=== PATIENT | female | born 1970 | race Caucasian/White ===

== ENCOUNTER → 2017-07-25 10:58 | Outpatient (CLI) | payer MEDICAID, SELFPAY ==
[2017-07-25 13:46] LABS: Free T4 (Free Thyroxine) 1.09 ng/dl (0.76-1.46); Thyroid Stimulating Hormone 2.39 uIU/ml (0.358-3.740)
[2017-07-25 13:51] LABS: Alanine Aminotransferase 30 U/L (12-78); Albumin/Globulin Ratio 1.1 (1.1-1.8); Alkaline Phosphatase 132 U/L (46-116); Anion Gap 11.4 mEq/L (5-15); Aspartate Amino Transferase 23 U/L (15-37); Bilirubin,Total 0.5 mg/dL (0.2-1.0); Blood Urea Nitrogen 10 mg/dL (7-18); C-Reactive Protein 5.3 mg/L (0.0-0.9); Calcium 8.5 mg/dL (8.5-10.1); Carbon Dioxide 30 mmol/L (21.0-32.0); Chloride 99 mmol/L (98-107); Chol/HDL Ratio 4.1 (1-3.5); Cholesterol 184 mg/dL (140-200); Creatinine,Serum 0.94 mg/dL (0.55-1.02); Estimated Glomerular Filt Rate 64 ml/min (>60); GFR (African American) 77 ML/MIN (>60); Globulin 3.7 gm/dl (1.3-3.2); Glucose 104 mg/dL (74-106); HDL Cholesterol 45 mg/dL (29-89); LDL Cholesterol 124 mg/dL (0-130); Potassium 3.4 mmoL/L (3.5-5.1); Sodium 137 mmol/L (136-145); Total Protein,Serum 7.7 gm/dL (6.4-8.2); Triglycerides 77 mg/dL (30-200); VLDL Cholesterol 15 mg/dL (0-40)
[2017-07-25 14:35] LABS: Basophils % 0.3 % (0.1-2.0); Eosinophils # 0.1 K/mm3 (0.0-0.4); Eosinophils % 1.8 % (0.1-12.0); Hematocrit 37.8 % (37.0-47.0); Hemoglobin 12.3 g/dL (12.2-16.2); Lymphocytes % 14.7 K/mm3 (10-50); Mean Corpuscular HGB Conc 32.4 g/dL (31.8-35.4); Mean Corpuscular Hemoglobin 27.4 pg (27.0-31.2); Mean Corpuscular Volume 84.5 fl (81-99); Mean Platelet Volume 7.6 fl (7.4-10.4); Monocytes # 0.4 K/mm3 (0.1-1.0); Monocytes % 5.1 % (1.7-9.3); Neutrophils # 5.5 K/mm3 (1.8-7.8); Platelet Count 260 K/mm3 (142-424); Red Blood Count 4.47 M/mm3 (4.20-5.40); Red Cell Distribution Width 13.9 % (11.5-17.5); White Blood Count 7.1 K/mm3 (4.8-10.8)
[2017-07-25 15:14] LABS: Hemoglobin A1C 5.8 % (0.0-7.0)
[2017-07-25 15:21] LABS: Erythrocyte Sedimentation Rate 38 mm/hr (0-20)
[2017-07-26 18:38] LABS: Deamidated Gliadin Abs, IgA 6 units (0-19); Deamidated Gliadin Abs, IgG 3 units (0-19); Thyroid Peroxidase Antibodies 18 IU/mL (0-34); Tissue Transglutaminase IgA Ab <2 U/mL (0-3); Tissue Transglutaminase IgG Ab 3 U/mL (0-5)
[2017-07-26 18:38] LABS: RA Latex Turbid. <10.0 IU/mL (0.0-13.9)
[2017-07-28 12:28] LABS: Antinuclear Antibodies, IFA Negative (.)
[2017-07-29 06:29] LABS: Endomysial IgA Antibody Negative (Negative)
[2017-07-30 06:14] LABS: Thyroglobulin Level <1.0 IU/mL (0.0-0.9)
[2017-07-30 15:45] LABS: Reticulin IgA Antibody Negative titer (Neg:<1:2.5)
== END ==
PROVIDERS: Allergy & Immunology; PCP Physician Assistant; Visit Provider Physician Assistant
DX: R53.83 Other fatigue (principal); K21.9 Gastro-esophageal reflux disease without esophagitis; I10 Essential (primary) hypertension; M25.50 Pain in unspecified joint; R21 Rash and other nonspecific skin eruption
CPT/HCPCS: 36415; 80053; 80061; 83036; 83516; 84439; 84443; 85025; 85651; 86038; 86140; 86255; 86256; 86376; 86431; 86800

== ENCOUNTER → 2017-10-02 09:51 | Outpatient (CLI) | payer MEDICAID, SELFPAY ==
[2017-10-03 11:22] LABS: Hep A Ab, IgM Negative (Negative); Hepatitis B Core Antibody IgM Negative (Negative); Hepatitis B Surface Antigen Negative (Negative)
[2017-10-03 19:24] LABS: Hepatitis C Antibody <0.1 s/co ratio (0.0-0.9)
== END ==
PROVIDERS: Visit Provider Physician Assistant
DX: Z11.59 Encounter for screening for other viral diseases (principal)
CPT/HCPCS: 36415; 80074

== ENCOUNTER → 2017-12-04 14:16 | Outpatient (CLI) | payer MEDICAID, SELFPAY ==
--- NOTE | 2017-12-04 | US_ITS ---
MM Dig mamm BI DX w/CAD, US breast LT complete, US breast RT complete INDICATION: Left breast mass ORDERING PHYSICIAN: Randi Awad PATIENT AGE: 47 years COMPARISON: 05/10/2011, 04/16/2011 TECHNIQUE: Standard images performed along with problem-solving views and bilateral breast ultrasound FINDINGS: Left breast: 3.7 x 3.6 cm mass in the outer aspect of the left breast. Spot compression views could not be performed due to patient's tenderness. There is also generalized interstitial edema of the central and outer aspect of the left breast. Right breast: No malignant appearing mass or malignant appearing microcalcification. There was a persistent parenchymal opacity in the infra aspect of the right breast possibly related overlying fibroglandular tissue not readily apparent on the cc view and may have been present on 04/16/2011 study.. There is some asymmetric density in the upper outer aspect of the right breast consistent with asymmetric fibroglandular tissue similar to the previous exam Bilateral breast ultrasound: Left breast: Irregular heterogeneous area of decreased echogenicity in the 1-2 o'clock region of the left breast corresponding to the mammographic abnormality measuring 3 x 2.6 cm. There is some through transmission of sound. The margins are irregular having a microlobulated or contour or. There is some through transmission of sound. This may represent a breast abscess. Certainly, neoplasm cannot be excluded and follow-up will be needed to confirm resolution. Right breast ultrasound: Unremarkable IMPRESSION: 3 cm mass involves the upper outer aspect of the left breast corresponding to palpable abnormality and may represent a breast abscess in this clinical setting. Neoplasm cannot totally be excluded, therefore, follow up is recommended. Surgical consult suggested Probably benign nodule inferior aspect right breast. Recommend 6 month follow-up BI-RADS Category: 4 Suspicious Abnormality-Biopsy Considered RECOMMENDED FOLLOW-UP: IMM - IMMEDIATE FOLLOW-UP RECOMMENDED (A letter has been sent to the patient regarding results of the study.)
== END ==
PROVIDERS: PCP Physician Assistant; Visit Provider Physician Assistant
DX: Z12.31 Encounter for screening mammogram for malignant neoplasm of breast (principal); N63.20 Unspecified lump in the left breast, unspecified quadrant; R23.4 Changes in skin texture
CPT/HCPCS: 76641; 77066

== ENCOUNTER → 2017-12-15 09:49 | Outpatient (CLI) | payer MEDICAID, SELFPAY ==
--- NOTE | 2017-12-15 09:51 | US_ITS ---
US breast LT complete, US breast cyst asp INDICATION: Left breast mass felt to represent an abscess ORDERING PHYSICIAN: Neo Howard MD PATIENT AGE: 47 years COMPARISON: 12/04/2017 Left breast ultrasound: Prebiopsy ultrasound is performed demonstrating a persistent heterogeneous collection at 2:00 measuring 4.4 x 3 cm. There is some enhanced through transmission of sound. Following obtaining informed consent under aseptic conditions and local anesthesia with 1% buffered lidocaine, initially a 21-gauge needle was inserted into the lesion under ultrasound guidance and turbid greenish fluid aspirated. Following this, a 21-gauge spinal needle was inserted under ultrasound guidance. Aspirate was obtained. Approximately 15 mL's of greenish cloudy turbid fluid was aspirated. The cavity decreased to 2.7 x 1.8 cm. No additional aspirate could be obtained. Specimen was sent for culture and sensitivity and cytology. Cytology: Negative for malignancy, acute inflammation in the carotid debris consistent with abscess. Culture and sensitivity: Pending IMPRESSION: Successful aspiration of left breast abscess without complication. Approximately 15 cc of turbid greenish fluid aspirated and sent for culture and sensitivity. No immediate complications.
== END ==
PROVIDERS: PCP Physician Assistant; Visit Provider Surgery
DX: N63.20 Unspecified lump in the left breast, unspecified quadrant (principal)
CPT/HCPCS: 10022; 76942; 76641; 87070; 87077; 87186; 87205